=== PATIENT | male | born 1940 | race Caucasian/White ===

== ENCOUNTER 2018-02-20 08:47 | Day surgery (SDC) | payer OTHER, BC ==
[2018-02-20] MEDS ORDERED: BENZOCAINE UNIT DOSE SPRAY HURRICAINE MM ONE (08:52)
[2018-02-20] MEDS ORDERED: fentaNYL 100 MCG/2 ML INJ IVP ONE (08:52)
[2018-02-20] MEDS ORDERED: NS 500 ML IV ONE (08:52)
[2018-02-20] MEDS ORDERED: MIDAZOLAM 2 MG/2 ML VIAL IVP ONE (08:52)
[2018-02-20] MEDS ORDERED: fentaNYL 100 MCG/2 ML INJ ONE (09:47)
[2018-02-20] MEDS ORDERED: MIDAZOLAM 2 MG/2 ML VIAL ONE (09:47)
--- NOTE | 2018-02-20 10:37 | PDPROPOC ---
Sedation Plan of Care Sedation Plan of Care: vital signs stable, mental status noted, patient educated of risks, benefits, alternatives, patient can tolerate sedation ASA Classification: ASA 1 Planned drugs: fentanyl, midazolam Mallampati Score: Class 1 Mallampati Reference Image: Patient passed 3-3-2 rule?: Yes
--- NOTE | 2018-02-20 10:40 | PDGENHP ---
History & Physical Chief Complaint: Chest pain, abnormal echocardiogram. History of Present Illness: Atypical chest pain. Seen by Dr. Don Maciel a year ago. At that time recommended for stress myocardial perfusion imaging study. An echocardiogram was performed demonstrating a right atrial abnormality. He is here today for further delineation of this abnormality. Pertinent Past, Social, Family History: No pertinent history. Relevant Physical Exam: RRR, Clear lungs Cardiorespiratory Assessment: Stable for CARSON. No contraindications.
--- NOTE | 2018-02-20 13:17 | ECHO ---
[email or web address] [address] [address] Main: [phone] Fax: Transesophageal Echocardiography Name: HEAVEN EDDY MR#: [id number] Study Date: 02/20/2018 Study Time: 10:02 AM Date of : 1940 Age: 77 year(s) Height: ( ) Weight: ( ) BSA: Gender: Male Examination: CARSON Indication: Eval Aortic Valve Image Quality: Contrast: Requested by: Aneudy Vargas Heart Rate: Rhythm: BP: / Procedure Staff Thread Trimmer: Estiven Collier RDCS Reading Physician: Aneudy Vargas MD Requesting Provider: CARSON Exam Details Conclusions: Normal global systolic LV function. The ejection fraction is visually estimated to be 60 %. No regional wall motion abnormality. Normal appearing atrial septum. Good color flow doppler in the left atrial appendage. Trivial mitral valve regurgitation. Mild aortic valve regurgitation is present. Trivial tricuspid valve regurgitation. There are no significant valvular abnormalities. Measurements: Chambers Valvular Assessment AV/MV Valvular Assessment TV/PV Normal Normal Normal Name Value Range Name Value Range Name Value Range Visual EF: 60 % Additional Measurements: Findings: Left Ventricle: Normal global systolic LV function. The ejection fraction is visually estimated to be 60 %. No regional wall motion abnormality. Right Ventricle: Patient: HEAVEN EDDY Study Date: 02/20/2018 Page 1 of 2 10:02 AM Normal size right ventricle. Normal RV function. Left Atrium: The left atrium is normal in size. Normal appearing atrial septum. Left Atrial Appendage: Good color flow doppler in the left atrial appendage. No thrombus in left appendage. Right Atrium: The right atrium is normal in size. Mitral Valve: The mitral valve is normal in appearance and function. Trivial mitral valve regurgitation. Aortic Valve: The aortic valve is tri-leaflet. Mild aortic valve regurgitation is present. Tricuspid Valve: The tricuspid valve appears normal. Trivial tricuspid valve regurgitation. Pulmonic Valve: The pulmonic valve is normal in appearance and function. Aorta: The aorta is normal. Pericardium: No pericardial effusion. l1n (No Signature Object) Patient: HEAVEN EDDY Study Date: 02/20/2018 Page 2 of 2 10:02 AM [id number]
== END 2018-02-20 13:09 | disposition home or self-care (01) ==
LOC: FCATH 08:47
PROVIDERS: ATTEND Internal Medicine Cardiovascular Disease
PROC: B246ZZ4 Ultrasonography of Right and Left Heart, Transesophageal (ICD-10-PCS; principal; 2018-02-20)
DX: R94.39 Abnormal result of other cardiovascular function study (principal); R07.89 Other chest pain; I10 Essential (primary) hypertension; E78.5 Hyperlipidemia, unspecified; E11.9 Type 2 diabetes mellitus without complications; J45.909 Unspecified asthma, uncomplicated; N40.0 Benign prostatic hyperplasia without lower urinary tract symptoms; J44.9 Chronic obstructive pulmonary disease, unspecified; Z85.118 Personal history of other malignant neoplasm of bronchus and lung
CPT/HCPCS: J2250; J3010

== ENCOUNTER → 2018-04-02 | Outpatient (CLI) | payer OTHER, BC | LOC: BHFA 13:00 | PROVIDERS: ATTEND Internal Medicine Cardiovascular Disease | DX: I35.1 Nonrheumatic aortic (valve) insufficiency (principal) ==